=== PATIENT | female | born 1960 | race Caucasian/White ===

== ENCOUNTER → 2017-08-05 12:37 | Outpatient (CLI) | payer OTHER, SELFPAY ==
[2017-08-05 13:26] LABS: Amphetamine/Metha Screen,Urine Negative ng/mL (<1000); Barbiturates Screen,Urine Negative ng/mL (<200); Benzodiazepines Screen,Urine Negative ng/mL (200); Cannabinoid Screen,Urine Positive ng/mL (<50); Cocaine Screen,Urine Negative ng/g (<300); Methadone Screen,Urine Negative ng/mL (<300); Opiate Screen,Urine Negative ng/mL (<300); Phencyclidine Screen,Urine Negative ng/mL (<25)
== END ==
PROVIDERS: Visit Provider Psychiatry & Neurology Psychiatry
DX: F33.2 Major depressive disorder, recurrent severe without psychotic features (principal); F40.01 Agoraphobia with panic disorder; F41.1 Generalized anxiety disorder; Z79.899 Other long term (current) drug therapy
CPT/HCPCS: 80305

== ENCOUNTER 2022-05-22 05:57 | Emergency (ER) | payer MEDICAID, SELFPAY ==
[2022-05-22 05:59] VITALS: BP 160/89; PULSE 71; RESP 20; TEMP 36.8; O2SAT 98; BMI 19.7
[2022-05-22 06:13] VITALS: BMI 19.7
--- NOTE | 2022-05-22 06:13 | CT_ITS ---
FINAL REPORT TECHNIQUE: Thin section axial images were obtained through the abdomen after intravenous contrast. Reconstruction images were obtained from the axial data. Exam was performed using dose reduction techniques. CLINICAL HISTORY: abd pain, vomiting FINDINGS: The lung bases are clear. The liver is homogeneous. The gallbladder is present. The spleen, adrenal glands, and pancreas are unremarkable. There is a left renal cyst.. Abdominal GI tract is without acute abnormality. There is no abdominal lymphadenopathy or ascites. There is long segment wall thickening of the colon including the pelvic portions with pericolonic inflammation. There is a 2.7 cm right ovarian cyst. The uterus is present. The appendix is not visualized but there are no secondary signs to suggest appendicitis. There is diverticulosis without evidence of diverticulitis. There is no pelvic lymphadenopathy or ascites. No acute osseous abnormalities identified. IMPRESSION: Long segment wall thickening of the colon with pericolonic inflammation consistent with colitis. Right ovarian cyst. Given patient's age, recommend follow-up ultrasound in 3-6 months. Reviewed, Interpreted and Dictated by Chantelle August MD Transcribed by Mattie Quinteros Authenticated and [facility]
[2022-05-22 06:30] VITALS: PULSE 88; O2SAT 96
[2022-05-22 06:31] LABS: Basophils # 0.1 K/mm3 (0-0.2); Basophils % 0.6 % (0.1-2.0); Eosinophils # 0.1 K/mm3 (0.0-0.4); Eosinophils % 1.4 % (0.1-12.0); Hematocrit 44.1 % (37.0-47.0); Hemoglobin 14.3 g/dL (12.2-16.2); Lymphocytes # 1.4 K/mm3 (0.7-4.5); Lymphocytes % 15.3 % (10-50); Mean Corpuscular HGB Conc 32.4 g/dL (31.8-35.4); Mean Corpuscular Hemoglobin 31.8 pg (27.0-31.2); Mean Corpuscular Volume 98.2 fl (81-99); Mean Platelet Volume 8.3 fl (7.4-10.4); Monocytes # 0.5 K/mm3 (0.1-1.0); Monocytes % 5.4 % (1.7-9.3); Neutrophils # 7.3 K/mm3 (1.8-7.8); Neutrophils % 77.2 % (37.0-80.0); Platelet Count 302 K/mm3 (142-424); Red Cell Distribution Width 13.1 % (11.5-17.5); White Blood Count 9.4 K/mm3 (4.8-10.8)
--- NOTE | 2022-05-22 06:34 | PC.NURSE ---
ER speaking with pt
[2022-05-22 06:35] LABS: Alanine Aminotransferase 26 U/L (12-78); Albumin Level 4.4 g/dl (3.5-5.0); Albumin/Globulin Ratio 1.6 (1.1-1.8); Alkaline Phosphatase 72 U/L (38-126); Amylase 67 U/L (30-110); Anion Gap 9.4 mEq/L (5-15); Aspartate Amino Transferase 33 U/L (14-36); Bilirubin,Total 0.5 mg/dl (0.2-1.3); Blood Urea Nitrogen 17 mg/dl (7-17); Calcium 9.2 mg/dl (8.4-10.2); Carbon Dioxide 31 mmol/L (22.0-30.0); Chloride 102 mmol/L (98-107); Creatinine Clearance Estimated 48 mL/min (50-200); Estimated Glomerular Filt Rate 101 ml/min (>60); GFR (African American) 123 ML/MIN (>60); Globulin 2.8 g/dL (1.3-3.2); Glucose 134 mg/dl (74-100); Lipase 227 U/L (23-300); Potassium 3.4 mmoL/L (3.5-5.1); Sodium 139 mmol/L (136-145); Total Protein,Serum 7.2 g/dl (6.3-8.2)
[2022-05-22 06:36] LABS: Alanine Aminotransferase 25 U/L (12-78); Albumin Level 4.4 g/dl (3.5-5.0); Alkaline Phosphatase 72 U/L (38-126); Aspartate Amino Transferase 36 U/L (14-36); Bilirubin,Direct 0.3 mg/dl (0.0-0.4); Bilirubin,Indirect 0.2 mg/dL (0.0-0.9); Bilirubin,Total 0.5 mg/dl (0.2-1.3); Bilirubin,Unconjugated 0.2 mg/dL (0.0-1.1); Total Protein,Serum 7.2 g/dl (6.3-8.2)
--- NOTE | 2022-05-22 06:36 | HMH.EDABDPAI ---
Discharge Plan Disposition Patient Disposition: Admitted as Observation Condition: Fair Referrals Follow up/Referrals: Provider,Referral, MD [Referring] - See instructions Clinical Impressions Clinical Impression: Abdominal pain, Intractable nausea and vomiting Instructions Patient Instructions: DI for Acute Abdominal Pain Discharge ED Provider: Shaq CELIS)Ivan Abdominal Pain HPI <Ivan CELIS)MD - Last Filed: 05/22/22 07:47> General Chief Complaint: Abdominal Pain Stated Complaint: Nausea,abd pain Time Seen by Provider: 05/22/22 06:36 Mode of Arrival: Ambulatory Source of Information: Patient, Spouse and Medical Record Limitations: No Limitations History of Present Illness HPI narrative: pt with episodes of n/v over the last few weeks and has increased pain tonight - MD complaint: abdominal pain Onset (ago): hour(s) Consistency: intermittent Location: RUQ and epigastric Severity: moderate Associated symptoms: nausea and vomiting Related Data Allergies Allergy/AdvReac Type Severity Reaction Status Date / Time No Known Allergies Allergy Verified 05/22/22 06:12 PFSH <Ivan CELIS)MD - Last Filed: 05/22/22 07:47> PFSH Disclaimer: The information contained in this section may have been updated after the patient was seen, as this information can be updated by other users. Social History (Updated 05/22/22 @ 07:47 by Ivan CELIS)MD) Smoking Status: Current every day smoker alcohol intake: never current occupational status: employed Travel in the last 8 weeks: None <Ivan New MD (ED) - Last Filed: 05/22/22 07:47> ROS Obtained: Yes All systems reviewed & no additional complaints except as documented Physical Exam <Ivan CELIS)MD - Last Filed: 05/22/22 07:47> General General appearance: alert Head Head exam: normocephalic Eye Eye exam: Present PERRL and EOMI; Absent jaundice ENT ENT exam: Present mucous membranes moist Neck Neck exam: Present trachea midline Respiratory Respiratory exam: Absent respiratory distress Cardiovascular Cardiovascular exam: Present regular rate Abdominal Exam Abdominal exam: Present soft, tenderness and Diaz's sign; Absent guarding or rebound Abdominal tenderness: Present epigastrium and moderate Extremities Exam Extremities exam: Present full ROM Neurological Exam Neurological exam: Present alert, oriented X3 and CN II-XII intact; Absent motor sensory deficit Psychiatric Psychiatric exam: Present normal affect Skin Skin exam: Absent rash Medical Decision Making <Ivan CELIS)MD - Last Filed: 05/22/22 07:47> Medical Records Medical records reviewed: Yes I reviewed the patient's medical records. Aidan Inquiry Pt receiving controlled substance: No Vital Signs: 05/22/22 05:59 05/22/22 06:30 05/22/22 07:00 Temperature 98.2 F Temperature Source Oral Pulse Rate 88 93 H Pulse Rate [Right] 71 Respiratory Rate 20 Blood Pressure [Right Arm] 160/89 H Blood Pressure Mean [Right Arm] 112 Blood Pressure Source [Right Arm] Automatic Cuff 02 Sat by Pulse Oximetry 98 96 97 Oxygen Delivery Method Room Air Lab Data Lab results reviewed: Yes I reviewed the patient's lab results. Lab Results 05/22/22 06:00: WBC 9.4, RBC 4.50, Hgb 14.3, Hct 44.1, MCV 98.2, MCH 31.8 H, MCHC 32.4, RDW 13.1, Plt Count 302, MPV 8.3, Neut % (Auto) 77.2, Lymph % (Auto) 15.3, [place] % (Auto) 5.4, Eos % (Auto) 1.4, Baso % (Auto) 0.6, Neut # (Auto) 7.3, Lymph # (Auto) 1.4, [place] # (Auto) 0.5, Eos # (Auto) 0.1, Baso # (Auto) 0.1 05/22/22 06:00: Sodium 139, Potassium 3.4 L, Chloride 102, Carbon Dioxide 31 H, Anion Gap 9.4, BUN 17, Creatinine 0.60, Estimated Creat Clear 48, Estimated GFR 101, Est GFR ( Amer) 123, Glucose 134 H, Calcium 9.2, Total Bilirubin 0.5, AST 33, ALT 26, Alkaline Phosphatase 72, C-Reactive Protein 1.5, Total Protein 7.2, Albumin 4.4, Globulin 2.8, Albumin/Globulin Ratio 1.6, Amylase
[2022-05-22 06:41] LABS: C-Reactive Protein 1.5 mg/L (0-4)
[2022-05-22 06:53] LABS: Lactic Acid 1.6 mmol/L (0.7-2.1)
[2022-05-22 06:54] LABS: Procalcitonin 0.043 ng/mL (0.0-2.0)
[2022-05-22 07:00] VITALS: PULSE 93; O2SAT 97
--- NOTE | 2022-05-22 07:15 | PC.NURSE ---
Assumed pt care. C/o 5/10 lower abd pain. Pt just received Phenergan. Last meal, 04:00 Richard. MD at bedside discussing preliminary CT results. No further complaints. Lighting adjusted to assist with environmental comfort. Relative at bedside.
--- NOTE | 2022-05-22 07:20 | PC.NURSE ---
contacted rad per ER request to see about pt having gall bladder u/s. States she will speak with u/s staff when they get in this morning and call us back.
--- NOTE | 2022-05-22 07:33 | US_ITS ---
FINAL REPORT TECHNIQUE: Sonographic images of the right upper quadrant were obtained. CLINICAL HISTORY: abd pain, vomiting FINDINGS: PANCREAS: Unremarkable. LIVER: Homogeneous. No focal hepatic lesion. No intrahepatic biliary ductal dilatation. GALLBLADDER: There are small gallstones. No gallbladder wall thickening or pericholecystic fluid. COMMON DUCT: 2 mm. Normal for age. RIGHT KIDNEY: The right kidney measures 10.4 cm. There is no hydronephrosis, mass, or stone. FREE FLUID: None. IMPRESSION: Small gallstones, otherwise unremarkable exam. Reviewed, Interpreted and Dictated by Chantelle August MD Transcribed by Dorcas Bowman Authenticated and [facility]
--- NOTE | 2022-05-22 07:33 | PC.NURSE ---
Pt ambulated to bathroom. Urine collected and sent.
[2022-05-22 07:36] LABS: Microscopic, Urine URINE MICROSCOPIC (MICROSCOPIC)
[2022-05-22 07:37] LABS: Appearance,Urine CLEAR (Clear); Bilirubin,Urine Negative (Negative); Blood, Urine Negative (Negative); Color,Urine YELLOW (Yellow); Glucose,Urine (UA) Negative (Negative); Ketones,Urine Negative (Negative); Leukocyte Esterase,Urine Negative (Negative); Nitrate,Urine Negative (Negative); Protein,Urine Negative (Negative); Urobilinogen,Urine 0.2 EU/dl (0.2)
[2022-05-22 07:40] LABS: Squamous Epithelial Cell,Urine Occasional #/hpf (0-5)
[2022-05-22 07:55] LABS: Amphetamine/Metha Screen,Urine Negative ng/ml (<1000)
[2022-05-22 07:57] LABS: Barbiturates Screen,Urine Negative ng/ml (<200); Cannabinoid Screen,Urine Positive ng/ml (<50)
--- NOTE | 2022-05-22 07:57 | PC.NURSE ---
To US via WC
[2022-05-22 07:58] LABS: Benzodiazepines Screen,Urine Negative ng/ml (<200); Cocaine Screen,Urine Negative ng/ml (<300)
--- NOTE | 2022-05-22 07:58 | PC.NURSE ---
pt to u/s via wheelchair
[2022-05-22 07:59] LABS: Methadone Screen,Urine Negative ng/ml (<300)
[2022-05-22 08:00] LABS: Opiate Screen,Urine Negative ng/ml (<300); Phencyclidine Screen,Urine Negative ng/ml (<25)
--- NOTE | 2022-05-22 08:27 | PC.NURSE ---
pt return from u/s
--- NOTE | 2022-05-22 08:28 | PC.NURSE ---
waiting technical publications manager back from to r/t ct results
--- NOTE | 2022-05-22 08:29 | PC.NURSE ---
Called radiology for an update on CT results.
--- NOTE | 2022-05-22 08:39 | PC.NURSE ---
pt still very nauseated , MD aware it is still to soon for meds pt understands
--- NOTE | 2022-05-22 08:40 | PC.NURSE ---
preliminary report for CT given to AUDRA LYNNE
--- NOTE | 2022-05-22 09:24 | PC.NURSE ---
2nd liter of NS initiated. Ice chips provided per provider.
--- NOTE | 2022-05-22 10:09 | PC.NURSE ---
MD at bedside discussing disposition, admission for observation.
--- NOTE | 2022-05-22 10:15 | PC.NURSE ---
AUDRA LYNNE spoke with dr. maurer
--- NOTE | 2022-05-22 10:16 | PC.NURSE ---
notified care management of admission, spoke with manpreet, states pt will be an obs admit
[2022-05-22 10:17] LABS: Coronavirus 19, PCR Not Detected (NotDetected); Influenza A, PCR Not Detected (NotDetected); Influenza B, PCR Not Detected (NotDetected)
[2022-05-22 10:34] VITALS: BP 142/70; PULSE 78; RESP 18; TEMP 37.2; O2SAT 100
--- NOTE | 2022-05-22 10:39 | PC.NURSE ---
Attempted report x 1.
--- NOTE | 2022-05-22 10:45 | PC.NURSE ---
Report provided to MUKESH Serna. Awaiting COVID results.
--- NOTE | 2022-05-22 10:47 | HMH.PHAINT1 ---
Pharmacy Intervention Comments: Medication reconciliation completed using external fill history
--- NOTE | 2022-05-22 10:52 | PC.NURSE ---
Shayla notified of neg COVID.
--- NOTE | 2022-05-22 10:52 | PC.NURSE ---
spoke with dr. maurer, states he will place initial admit order so pt can be transferred to second floor
--- NOTE | 2022-05-22 10:57 | PC.NURSE ---
pt ambulated up to BR
--- NOTE | 2022-05-22 11:03 | PC.NURSE ---
PT BEING TRANSPORTED UP FOR ADMISSION
--- NOTE | 2022-05-22 11:05 | PC.NURSE ---
Pt has arrived to the floor at this time
[2022-05-22 11:08] VITALS: BP 160/87; PULSE 72; RESP 20; TEMP 37.1; O2SAT 99; BMI 19.1
[2022-05-22 11:54] VITALS: BP 142/70; PULSE 78; RESP 18; TEMP 37.2; O2SAT 100
--- NOTE | 2022-05-22 12:31 | PC.NURSE ---
pt informed that significant other called and stated he would be up later to see patient.
--- NOTE | 2022-05-22 12:47 | EXP.HP ---
History of Present Illness *Admission Date: 05/22/22 *Reason for visit:: Nausea and vomiting *History of present illness: This is a 62-year-old female that presents to [facility] emergency department with emesis. She reports a couple of days of nausea and vomiting with no associated diarrhea, fever, chills, hematemesis, melena or hematochezia. Routine marijuana use is reported. Her drug screen is positive for marijuana. She reports right lower quadrant abdominal pain that radiates to her genitalia. She has not identified any dysuria, vaginal discharge or crescendo pelvic pain. The pain is intermittent and will occur with coitus. She reported plans to discuss with her toe laster. She reports a colonoscopy in 2020 reported as normal. In the ED she received fluid resuscitation and several antiemetics. By the time of my evaluation her emesis has resolved. Her laboratory studies identified no abnormalities and her vitals are stable. Nursing staff report good tolerance of p.o. intake. [facility] Medical History (Updated 05/22/22 @ 12:54 by Michael Caputo MD) COPD (chronic obstructive pulmonary disease) HTN (hypertension) Marijuana dependence Surgical History (Updated 05/22/22 @ 12:50 by Michael Caputo MD) History of bilateral tubal ligation Hx of appendectomy Social History (Updated 05/22/22 @ 11:29 by Rupa Harris RN) Smoking Status: Current every day smoker alcohol intake: never current occupational status: employed Travel in the last 8 weeks: None Review of Systems Review of Systems Review of systems:: pertinent systems reviewed and negative unless documented below ENT Ears, Nose, Mouth, and Throat: Denies dysphagia *Gastrointestinal Gastrointestinal: Denies change in stool character, Denies diarrhea, Denies dysphagia, Denies hematemesis, Denies hematochezia, Denies loose stools, Denies melena, Reports nausea and Reports vomiting Meds Home Medications and Allergies Home Medications Medication Instructions Recorded Confirmed Type albuterol sulfate 90 mcg/actuation 2 puff inhalation Q4HP PRN 05/22/22 05/22/22 History aerosol inhaler (Ventolin HFA) breathing problems amlodipine 5 mg-benazepril 10 mg 1 cap PO DAILY High blood pressure 05/22/22 05/22/22 History capsule atorvastatin 20 mg tablet 20 mg PO DAILY Cholesterol 05/22/22 05/22/22 History clonidine HCl 0.1 mg tablet 0.1 mg PO TID High blood pressure 05/22/22 05/22/22 History escitalopram oxalate 10 mg tablet 10 mg PO DAILY Depression 05/22/22 05/22/22 History fluticasone propionate 50 1 spray intranasal DAILY Breathing 05/22/22 05/22/22 History mcg/actuation nasal problems spray,suspension umeclidinium 62.5 mcg-vilanterol 1 inh inhalation DAILY Breathing 05/22/22 05/22/22 History 25 mcg/actuation powdr for problems inhalation (Anoro Ellipta) New Prescriptions to Start Prescriptions: Allergies Allergy/AdvReac Type Severity Reaction Status Date / Time No Known Allergies Allergy Verified 05/22/22 06:12 Exam Data for Last 24 hours Vital signs and Labs for Last 24 Hours: Temp Pulse Resp BP Pulse Ox 98.9 F 78 18 142/70 H 99 05/22/22 11:54 05/22/22 11:54 05/22/22 11:54 05/22/22 11:54 05/22/22 11:08 Laboratory Results - last 24 hr 05/22/22 06:00: WBC 9.4, RBC 4.50, Hgb 14.3, Hct 44.1, MCV 98.2, MCH 31.8 H, MCHC 32.4, RDW 13.1, Plt Count 302, MPV 8.3, Neut % (Auto) 77.2, Lymph % (Auto) 15.3, [place] % (Auto) 5.4, Eos % (Auto) 1.4, Baso % (Auto) 0.6, Neut # (Auto) 7.3, Lymph # (Auto) 1.4, [place] # (Auto) 0.5, Eos # (Auto) 0.1, Baso # (Auto) 0.1 05/22/22 06:00: Sodium 139, Potassium 3.4 L, Chloride 102, Carbon Dioxide 31 H, Anion Gap 9.4, BUN 17, Creatinine 0.60, Estimated Creat Clear 48, Estimated GFR 101, Est GFR ( Amer) 123, Glucose 134 H, Calcium 9.2, Total Bilirubin 0.5, AST 33, ALT 26, Alkaline Phosphatase 72, C-Reactive Protein 1.5, Total Protein 7.2, Albumin 4.4, Globulin 2.8, Albumin/
--- NOTE | 2022-05-22 12:54 | PC.NURSE ---
Dr. Montelongo rounded on patient and stated that she would be discharged. Pt informed of discharge and Frederic, significant other called for discharge ride.
--- NOTE | 2022-05-22 13:10 | EXP.DC.SUM ---
General Admission date:: 05/22/22 Discharge date: 05/22/22 HPI HPI HPI: This is a 62-year-old female that presents to [facility] emergency department with emesis. She reports a couple of days of nausea and vomiting with no associated diarrhea, fever, chills, hematemesis, melena or hematochezia. Routine marijuana use is reported. Her drug screen is positive for marijuana. She reports right lower quadrant abdominal pain that radiates to her genitalia. She has not identified any dysuria, vaginal discharge or crescendo pelvic pain. The pain is intermittent and will occur with coitus. She reported plans to discuss with her translator deaf. She reports a colonoscopy in 2020 reported as normal. In the ED she received fluid resuscitation and several antiemetics. By the time of my evaluation her emesis has resolved. Her laboratory studies identified no abnormalities and her vitals are stable. Nursing staff report good tolerance of p.o. intake. Hospital Course Hospital Course Hospital Course: The patient was admitted to the medical floor. Nursing staff reported she remained afebrile with stable vital signs and no further emesis. She tolerated p.o. intake. She inquired about discharge home. We have recommended discharge home with short course of oral antibiotic therapy and antiemetics. It is recommended that she discontinue smoking cigarettes and marijuana routinely. We have recommended a follow-up with her translator deaf to discuss findings on CT scan of the abdomen for right ovarian cyst in her age group. She voiced understanding. I have recommended following up in 1 week with her PCP. Exam Data for Last 24 hours Vital signs and Labs for Last 24 Hours: Temp Pulse Resp BP Pulse Ox 98.9 F 78 18 142/70 H 99 05/22/22 11:54 05/22/22 11:54 05/22/22 11:54 05/22/22 11:54 05/22/22 11:08 Laboratory Results - last 24 hr 05/22/22 06:00: WBC 9.4, RBC 4.50, Hgb 14.3, Hct 44.1, MCV 98.2, MCH 31.8 H, MCHC 32.4, RDW 13.1, Plt Count 302, MPV 8.3, Neut % (Auto) 77.2, Lymph % (Auto) 15.3, [place] % (Auto) 5.4, Eos % (Auto) 1.4, Baso % (Auto) 0.6, Neut # (Auto) 7.3, Lymph # (Auto) 1.4, [place] # (Auto) 0.5, Eos # (Auto) 0.1, Baso # (Auto) 0.1 05/22/22 06:00: Sodium 139, Potassium 3.4 L, Chloride 102, Carbon Dioxide 31 H, Anion Gap 9.4, BUN 17, Creatinine 0.60, Estimated Creat Clear 48, Estimated GFR 101, Est GFR ( Amer) 123, Glucose 134 H, Calcium 9.2, Total Bilirubin 0.5, AST 33, ALT 26, Alkaline Phosphatase 72, C-Reactive Protein 1.5, Total Protein 7.2, Albumin 4.4, Globulin 2.8, Albumin/Globulin Ratio 1.6, Amylase 67, Lipase 227, Procalcitonin 0.043 05/22/22 06:00: Total Bilirubin 0.5, Direct Bilirubin 0.3, Conjugated Bilirubin 0.0, Indirect Bilirubin 0.2, Unconjugated Bilirubin 0.2, AST 36, ALT 25, Alkaline Phosphatase 72, Total Protein 7.2, Albumin 4.4 05/22/22 06:00: Lactate 1.6 05/22/22 07:24: Urine Color Yellow, Urine Appearance Clear, Urine pH 7.0, Ur Specific [place] 1.010, Urine Protein Negative, Urine Glucose (UA) Negative, Urine Ketones Negative, Urine Blood Negative, Urine Nitrate Negative, Urine Bilirubin Negative, Urine Urobilinogen 0.2, Ur Leukocyte Esterase Negative, Urine RBC None, Urine WBC 3-5, Ur Squamous Epith Cells Occasional, Urine Bacteria None 05/22/22 07:24: Urine Opiates Screen Negative, Urine Methadone Screen Negative, Ur Barbituates Screen Negative, Ur Phencyclidine Scrn Negative, Ur Amphetamines Screen Negative, U Benzodiazepines Scrn Negative, Urine Cocaine Screen Negative, U Marijuana (THC) Screen Positive H 05/22/22 10:08: SARS-CoV-2 (PCR) Not detected, Influenza A Untype (PCR) Not detected, Influenza Type B (PCR) Not detected I & O for Last 24 hours: Intake & Output 05/19/22 05/20/22 05/21/22 05/22/22 23:59 23:59 23:59 23:59 Intake Total 0 / 0 Balance 0 / 0 Weight 49.045 kg Constitutional Constitutional: no acute distress *Routine HEENT Exam Head: Present normocephalic Eye: Prese
--- NOTE | 2022-05-22 13:14 | PC.NURSE ---
rounded on patient and medicated per may. VSS and patient tolerated water with no vomiting. pt laying in bed resting at this time.
--- NOTE | 2022-05-22 13:25 | HMH.PHAINT1 ---
Pharmacy Intervention Comments: Discharge medications discussed with patient. Patient verbalized understanding and had no questions at this time
== END 2022-05-22 15:37 | disposition home or self-care (01) ==
LOC: ER 10:14 → 2ND 11:37
PROVIDERS: Emergency Medicine; Emergency Provider Emergency Medicine; PCP Family Medicine; Visit Provider Family Medicine
DX: K52.9 Noninfective gastroenteritis and colitis, unspecified (principal); F12.90 Cannabis use, unspecified, uncomplicated; N83.201 Unspecified ovarian cyst, right side
CPT/HCPCS: 74177; 76705; 80053; 80076; 80305; 81001; 82150; 83605; 83690; 84145; 85025; 86140; 99285; C9803; G0378; J2405; Q9967; U0003; U0005